=== PATIENT | male | born 1955 | race Caucasian/White ===

== ENCOUNTER 2018-01-21 21:32 | Inpatient (IN) | payer OTHER ==
[~2018-01-21] VITALS: Ht 167.6 cm; Wt 84.4 kg
[2018-01-21 22:39] LABS: HEMATOCRIT 37.8 % (38.0-50.0); HEMOGLOBIN 13.2 G/DL (12.5-16.6); MCH 31.3 PG (29.0-34.0); MCHC 34.9 G/DL (30.0-36.0); MCV 89.6 FL (86-99); PLATELET COUNT 282 K/uL (156-360); RBC DIS.WIDTH-CV 12.8 % (11.8-14.6); RED BLOOD COUNT 4.22 M/uL (4.00-5.50); WHITE BLOOD COUNT 14.7 K/uL (4.1-10.2)
[2018-01-21 22:49] LABS: ALBUMIN 3.9 g/dL (3.2-4.8)
[2018-01-21 22:50] LABS: CHLORIDE 101 mEq/L (99-109); POTASSIUM 4.2 mEq/L (3.7-5.4); SODIUM 134 mEq/L (136-147)
[2018-01-21 22:52] LABS: GLUCOSE 112 mg/dL (70-99); TOTAL PROTEIN 7.6 g/dL (6.4-8.3)
[2018-01-21 22:54] LABS: TOTAL BILIRUBIN 0.5 mg/dL (0.0-1.0)
[2018-01-21 22:55] LABS: ALKALINE PHOSPHATASE 82 IU/L (3-129)
[2018-01-21 22:56] LABS: GFR ESTIMATE (CALCULATED) > 59 mL/min/ (58.99-99999)
[2018-01-21 22:57] LABS: AST (GOT) 14 IU/L (2-34); UREA NITROGEN (BUN) 15 mg/dL (9-23)
[2018-01-21 22:58] LABS: ALT (GPT) 15 IU/L (3-49)
[2018-01-22 00:35] LABS: APPEARANCE CLEAR ((CLEAR)); COLOR YELLOW ((YELLOW)); GLUCOSE (STRIP) NEGATIVE; KETONES 20; LEUKOCYTES NEGATIVE; NITRITE NEGATIVE; PROTEIN (STRIP) 30; SPECIFIC GRAVITY 1.021 (1.000-1.030)
[2018-01-22 00:36] LABS: BILIRUBIN NEGATIVE; BLOOD MODERATE
[2018-01-22 00:42] LABS: BACTERIA NONE SEEN /HPF; EPITHELIAL CELLS NONE SEEN /HPF; HYALINE CASTS 0-5 /LPF; MUCUS 2+ /LPF; UCUL ADDED? NO; WHITE BLOOD CELLS 0-5 /HPF (0-5)
[2018-01-22 06:20] VITALS: BP 105/66
[2018-01-22 12:01] VITALS: BP 106/59
[2018-01-22] MEDS ORDERED: SYMBICORT60 INHALAT IH (12:58)
[2018-01-22] MEDS ORDERED: PRINIVIL20 MG PO (12:58)
[2018-01-22] MEDS ORDERED: METOPROLOL SUC100 MG PO (12:58)
[2018-01-22 16:20] VITALS: BP 106/63
[2018-01-22 19:56] VITALS: BP 118/69
[2018-01-23 00:29] VITALS: BP 116/64
[2018-01-23 04:03] VITALS: BP 124/74
[2018-01-23 06:05] LABS: HEMOGLOBIN 13.2 G/DL (12.5-16.6); MCH 30.5 PG (29.0-34.0); MCHC 33.8 G/DL (30.0-36.0); MCV 90.1 FL (86-99); PLATELET COUNT 323 K/uL (156-360); RBC DIS.WIDTH-CV 13.2 % (11.8-14.6); RED BLOOD COUNT 4.33 M/uL (4.00-5.50); WHITE BLOOD COUNT 13.4 K/uL (4.1-10.2)
[2018-01-23 06:30] LABS: ALBUMIN 3.3 G/DL (3.2-4.8); ALKALINE PHOSPHATASE 71 IU/L (3-129); ALT (GPT) 11 IU/L (3-49); AST (GOT) 16 IU/L (2-34); CHLORIDE 100 MEQ/L (99-109); CREATININE 0.9 MG/DL (0.6-1.3); GFR ESTIMATE (CALCULATED) > 59 mL/min/ (58.99-99999); GLUCOSE 132 mg/dL (70-99); POTASSIUM 4.9 MEQ/L (3.7-5.4); SODIUM 136 MEQ/L (136-147); TOTAL BILIRUBIN 0.6 MG/DL (0.0-1.0); TOTAL PROTEIN 5.9 G/DL (6.4-8.3); UREA NITROGEN (BUN) 10 mg/dL (9-23)
[2018-01-23 07:12] VITALS: BP 110/85
[2018-01-23 12:00] VITALS: BP 134/78
[2018-01-23 16:21] VITALS: BP 150/79
[2018-01-23 19:02] VITALS: BP 138/95
[2018-01-24] VITALS (7 sets, daily range): BP systolic 118–138; BP diastolic 74–89
[2018-01-24 07:00] LABS: HEMATOCRIT 35.5 % (38.0-50.0); HEMOGLOBIN 12.3 G/DL (12.5-16.6); MCH 30.3 PG (29.0-34.0); MCHC 34.6 G/DL (30.0-36.0); MCV 87.4 FL (86-99); PLATELET COUNT 371 K/uL (156-360); RBC DIS.WIDTH-CV 13.4 % (11.8-14.6); RBC DIS.WIDTH-SD 42.9 % (39-53); RED BLOOD COUNT 4.06 M/uL (4.00-5.50)
[2018-01-24 07:24] LABS: CHLORIDE 99 MEQ/L (99-109); CREATININE 0.9 MG/DL (0.6-1.3); GFR ESTIMATE (CALCULATED) > 59 mL/min/ (58.99-99999); GLUCOSE 130 mg/dL (70-99); POTASSIUM 4.8 MEQ/L (3.7-5.4); SODIUM 135 MEQ/L (136-147); UREA NITROGEN (BUN) 14 mg/dL (9-23)
[2018-01-24 07:30] LABS: BASOPHIL (%) 0.2 % (0-1); EOSINOPHIL (%) 0.5 % (0-5); EOSINOPHIL COUNT 0.1 K/uL (0-0.3); LYMPHOCYTE (%) 12.3 % (15-42); LYMPHOCYTE COUNT 1.6 K/uL (1.0-2.8); MONOCYTE (%) 9.5 % (3-12); MONOCYTE COUNT 1.2 K/uL (0-0.8); NEUTROPHIL (%) 76.5 % (45-76); NEUTROPHIL COUNT 9.9 K/uL (1.8-6.4)
[2018-01-25 00:18] VITALS: BP 132/78
[2018-01-25 03:46] VITALS: BP 140/75
[2018-01-25 06:29] LABS: BASOPHIL (%) 0.2 % (0-1); EOSINOPHIL (%) 0 % (0-5); HEMATOCRIT 35.6 % (38.0-50.0); HEMOGLOBIN 12.5 G/DL (12.5-16.6); IMMATURE GRANULOCYTE (%) 0.8 % (0.0-0.7); LYMPHOCYTE (%) 7.4 % (15-42); LYMPHOCYTE COUNT 0.8 K/uL (1.0-2.8); MCH 30.6 PG (29.0-34.0); MCHC 35.1 G/DL (30.0-36.0); MCV 87.3 FL (86-99); MONOCYTE (%) 7.2 % (3-12); MONOCYTE COUNT 0.8 K/uL (0-0.8); NEUTROPHIL (%) 84.4 % (45-76); NEUTROPHIL COUNT 9.5 K/uL (1.8-6.4); PLATELET COUNT 433 K/uL (156-360); RBC DIS.WIDTH-CV 13.6 % (11.8-14.6); RBC DIS.WIDTH-SD 43.2 % (39-53); RED BLOOD COUNT 4.08 M/uL (4.00-5.50); WHITE BLOOD COUNT 11.2 K/uL (4.1-10.2)
[2018-01-25 06:54] LABS: CHLORIDE 99 MEQ/L (99-109); CREATININE 0.8 MG/DL (0.6-1.3); GFR ESTIMATE (CALCULATED) > 59 mL/min/ (58.99-99999); GLUCOSE 145 mg/dL (70-99); POTASSIUM 4.6 MEQ/L (3.7-5.4); SODIUM 137 MEQ/L (136-147); UREA NITROGEN (BUN) 21 mg/dL (9-23)
[2018-01-25 08:13] VITALS: BP 134/77
[2018-01-25 11:52] VITALS: BP 141/85
[2018-01-25 16:03] VITALS: BP 128/77
[2018-01-26 00:32] VITALS: BP 137/68
[2018-01-26 07:01] LABS: BASOPHIL (%) 0.2 % (0-1); EOSINOPHIL (%) 0.6 % (0-5); EOSINOPHIL COUNT 0.1 K/uL (0-0.3); HEMATOCRIT 31.9 % (38.0-50.0); HEMOGLOBIN 10.8 G/DL (12.5-16.6); IMMATURE GRANULOCYTE (%) 1.6 % (0.0-0.7); LYMPHOCYTE (%) 12.6 % (15-42); LYMPHOCYTE COUNT 1.3 K/uL (1.0-2.8); MCH 29.7 PG (29.0-34.0); MCHC 33.9 G/DL (30.0-36.0); MCV 87.6 FL (86-99); MONOCYTE (%) 9.4 % (3-12); NEUTROPHIL (%) 75.6 % (45-76); NEUTROPHIL COUNT 7.7 K/uL (1.8-6.4); PLATELET COUNT 451 K/uL (156-360); RBC DIS.WIDTH-CV 13.5 % (11.8-14.6); RBC DIS.WIDTH-SD 43.8 % (39-53); RED BLOOD COUNT 3.64 M/uL (4.00-5.50); WHITE BLOOD COUNT 10.1 K/uL (4.1-10.2)
[2018-01-26 07:24] LABS: CHLORIDE 102 MEQ/L (99-109); CREATININE 0.8 MG/DL (0.6-1.3); GFR ESTIMATE (CALCULATED) > 59 mL/min/ (58.99-99999); GLUCOSE 111 mg/dL (70-99); POTASSIUM 4.4 MEQ/L (3.7-5.4); SODIUM 140 MEQ/L (136-147); UREA NITROGEN (BUN) 21 mg/dL (9-23)
[2018-01-26 08:10] VITALS: BP 111/71
[2018-01-26 15:56] VITALS: BP 119/68
[2018-01-26 20:20] VITALS: BP 121/66
[2018-01-27 00:50] VITALS: BP 148/70
[2018-01-27 05:02] VITALS: BP 137/74
[2018-01-27 08:13] VITALS: BP 142/66
[2018-01-27 12:07] VITALS: BP 132/67
[2018-01-27 15:57] VITALS: BP 155/70
[2018-01-28 00:03] VITALS: BP 127/60
[2018-01-28 07:46] VITALS: BP 127/67
[2018-01-28 15:26] VITALS: BP 133/77
[2018-01-28 23:15] VITALS: BP 122/66
[2018-01-29 07:39] VITALS: BP 129/70
[2018-01-29 15:22] VITALS: BP 112/66
[2018-01-29 23:59] VITALS: BP 125/73
[2018-01-30 07:32] VITALS: BP 121/67
[2018-01-30 15:40] VITALS: BP 108/66
[2018-01-31 00:43] VITALS: BP 112/67
[2018-01-31 07:45] VITALS: BP 149/72
[2018-01-31] MEDS ORDERED: BACTRIM,SEPT1 TABLET PO (10:08)
[2018-01-31] MEDS ORDERED: NICOTINE PATCH1 EAC2 TD (10:08)
[2018-01-31] MEDS ORDERED: ROXICODONE5 MG PO (10:08)
[2018-01-31] MEDS ORDERED: FLAGYL500 MG PO (10:08)
[2018-01-31] MEDS ORDERED: FLORASTOR250 MG PO (10:20)
== END 2018-01-31 15:20 | disposition home health service (06) | DRG 330 ==
LOC: EME 21:32 → SDC 01-22 02:30 → 2EAST 01-22 04:57 → 2SOUTH 01-22 04:57 → ENRESERV 01-22 05:12 → 2EAST 01-22 06:05
PROVIDERS: Physician Assistant; Surgery
PROC: 0DTF0ZZ Resection of Right Large Intestine, Open Approach (ICD-10-PCS; principal; 2018-01-22)
DX: K35.3 Acute appendicitis with localized peritonitis (principal); B96.89 Other specified bacterial agents as the cause of diseases classified elsewhere; T81.4XXA Infection following a procedure, initial encounter; Y83.8 Other surgical procedures as the cause of abnormal reaction of the patient, or of later complication, without mention of misadventure at the time of the procedure; K56.7 Ileus, unspecified; I10 Essential (primary) hypertension; E66.9 Obesity, unspecified; Z68.30 Body mass index [BMI] 30.0-30.9, adult; F10.10 Alcohol abuse, uncomplicated; F17.210 Nicotine dependence, cigarettes, uncomplicated; Z56.0 Unemployment, unspecified
CPT/HCPCS: 74018; 74019; 74176; 80048; 80053; 81003; 85025; 85025 91; 85027; 87070; 87075; 87076; 87077; 87185; 87186; 87205; 88307; 93005; 94799; 99281; 99285; C9113; J0131; J0330; J0692; J1100; J1170; J1885; J2405; J2710; J2765; J3010; J3480; J7030; J7120; J7643; S0020; S0074